=== PATIENT | female | born 1955 | race Caucasian/White ===

== ENCOUNTER 2018-02-26 10:08 | Emergency (ER) | payer OTHER, MEDICARE ==
[2018-02-26 10:43] VITALS: BP 110/56
--- NOTE | 2018-02-26 10:56 | UC ---
Shortness of Breath HPI - HPI Summary HPI Summary: 4 days ago patient bent over to shredder picker something off the floor had a sudden onset of lower right rib pain. Patient has felt intermittently short of breath patient has had pain in the rib that is radiated up to the back of her scapula. - History of Current Complaint Chief Complaint: UCGeneralIllness Stated Complaint: RIGHT SIDE RIB PAIN Time Seen by Provider: 02/26/18 10:21 Hx Obtained From: Patient - S ?: No Onset/Duration: Sudden Onset, Lasting Days - 4, Still Present Timing: Constant Current Severity: Moderate Dyspnea At: Rest - at her baseline Aggrevating Factors: Nothing Alleviating Factors: Nothing Associated Signs & Symptoms: Positive: Chest Pain w/Cough - Allergy/Home Medications Allergies/Adverse Reactions: Allergies Allergy/AdvReac Type Severity Reaction Status Date / Time spironolactone Allergy Nausea And Verified 02/26/18 10:24 Vomiting daytro 500 Allergy Swelling Uncoded 02/26/18 10:23 Of Face,Lips,& Throat Home Medications: Home Medications Azelastine 0.15% NASAL(NF) [Astepro 0.15% NASAL (NF)] 1 spray NASAL BID [History Confirmed 02/26/18] Calcium Carbonate/Vitamin D3 [Calcium 600 + Vit D Tablet] 1 tab PO DAILY [History Confirmed 02/26/18] Diltiazem CD CAP* [Cardizem CD CAP*] 480 mg PO DAILY 02/26/18 [History Confirmed 02/26/18] Ferrous Sulfate [Iron] 325 mg PO DAILY 02/26/18 [History Confirmed 02/26/18] Furosemide TAB* [Lasix TAB*] 60 mg PO BID 02/26/18 [History Confirmed 02/26/18] Hydroxychloroquine TAB* [Plaquenil TAB*] 200 mg PO BID 02/26/18 [History Confirmed 02/26/18] Ibandronate TAB(NF) [Boniva(NF)] 150 mg PO MONTHLY 02/26/18 [History Confirmed 02/26/18] Omeprazole CAP* [Prilosec CAP* 20 MG] 20 mg PO BID 02/26/18 [History Confirmed 02/26/18] Potassium Chlor TAB* [Potassium Chlor TAB 20 MEQ*] 20 meq PO DAILY 02/26/18 [ History Confirmed 02/26/18] Sildenafil (PULMONARY)(NF) [Revatio (NF)] 20 mg PO TID 02/26/18 [History Confirmed 02/26/18] Sulfamethox/Trimethoprim DS* [Bactrim DS 800/160 TAB*] 1 tab PO EVERY OTHER DAY 02/26/18 [History Confirmed 02/26/18] Treprostinil/Neb Accessories [Tyvaso Inhalation Refill Kit] 1.74 mg IH QID 02/26 [History Confirmed 02/26/18] Voriconazole TAB (NF) 400 mg PO DAILY 02/26/18 [History Confirmed 02/26/18] Wheat Dextrin [Benefiber] 1 pow PO DAILY 02/26/18 [History Confirmed 02/26/18] azaTHIOprine TAB(*) [Imuran TAB(*)] 50 mg PO BID 02/26/18 [History Confirmed 01/09] celeCOXIB CAP* [Celebrex CAP*] 200 mg PO BID 02/26/18 [History Confirmed ] predniSONE TAB* [Deltasone 20 MG TAB*] 20 mg PO DAILY 02/26/18 [History Confirmed 02/26/18] tiZANidine TAB* [Zanaflex TAB*] 2 mg PO TID 02/26/18 [History Confirmed 02/26/18 ] traMADol TAB* [Ultram*] 25 mg PO Q6HR PRN 02/26/18 [History Confirmed 02/26/18] PMH/Surg Hx/FS Hx/Imm Hx Previously Healthy: No - pulmonary fibrosis, pulmonary hypertension, RA GI/ History: Gastroesophageal Reflux - Audra actually cardiac catheter yesterday A, Other Other GI/ History: hiatel hernia - Surgical History Surgical History: Yes Surgery Procedure, Year, and Place: hysterectomy. claudio cyst removal L wrist. R leg- 2 plates, 17 screws - Family History Known Family History: Positive: None - Social History Occupation: Disabled Lives: With Family Alcohol Use: None Substance Use Type: None Smoking Status (MU): Never Smoked Tobacco Review of Systems Constitutional: Negative Skin: Negative Eyes: Negative ENT: Negative Respiratory: Shortness Of Breath, Other - Right lower rib pain Cardiovascular: Negative Gastrointestinal: Negative Genitourinary: Negative Motor: Negative Neurovascular: Negative Musculoskeletal: Negative Neurological: Negative Psychological: Negative Is Patient Immunocompromised?: No All Other Systems Reviewed And Are Negative: Yes Physical Exam Triage Information Reviewed: Yes Appearance: Well-Nourished, Ill-Appearing - chronic, Pain Distress - mild Vital Signs: Initial Vital Signs Temp 98.7 F 02/26/18 10:20 Pulse 80 02/26/18 10:20 Resp 22 02/26/18 10:20 BP 110/56 02/26/18 10:20 Pulse Ox 98 02/26/18 10:20 Vital Signs Reviewed: Yes Eye Exam: Normal Eyes: Positive: Conjunctiva Clear ENT Exam: Normal ENT: Positive: Normal ENT inspection, Hearing grossly normal, Pharynx normal. Negative: Nasal congestion, Trismus, Muffled voice, Hoarse voice Dental Exam: Normal Neck exam: Normal Neck: Positive: Supple, Nontender Respiratory Exam: Normal Respiratory: Positive: Normal breath sounds, No respiratory distress, No accessory muscle use, Other: - right anterior lateral chest wall pain. Negative : Chest non-tender Cardiovascular Exam: Normal Cardiovascular: Positive: RRR, No Murmur, Pulses Normal, Brisk Capillary Refill - . Changes Abdominal Exam: Normal Abdomen Description: Positive: Nontender Musculoskeletal Exam: Normal Musculoskeletal: Positive: Strength Intact, ROM Intact, No Edema Neurological Exam: Normal Neurological: Positive: Alert, Muscle Tone Normal Psychological Exam: Normal Psychological: Positive: Normal Response To Family, Age Appropriate Behavior, Consolable Skin Exam: Normal Diagnostics - Radiology No standard instances Xray Interpretation: Positive (See Comments) Radiology Interpretation Completed By: Radiologist - Patient Name: IRVIN DON Medical Record#: [id number] Ordering Physician: Kimberli Tejada HEAD [employer]PER Acct.#: [id number] : 1955 Age: 62 Sex: F Location: [facility] Exam Date: 02/26/18 1117 ADM Status: REG ER Order Information: CHEST PA & LAT 2 VWS Accession Number: [id number] CPT : 37430 INDICATION: Evaluate for hiatal hernia COMPARISON: Rib series same date TECHNIQUE: PA and lateral dual-energy views were obtained. FINDINGS: Bones/Soft Tissues: There is osteopenia with kyphosis. There is underlying osteoarthritic change. Cardiomediastinal: The heart is normal in size. The central pulmonary arteries are prominent consistent with pulmonary arterial hypertension. Lungs: There is a diffuse reticulonodular appearance of the lung callejas with coarsening of interstitium compatible with interstitial fibrosis. Given these diffuse abnormalities, superimposed acute process would be difficult to exclude. Pleura : No significant effusions. Other: Retrocardiac air-fluid level. Lateral views suggest that this is related to a hiatal hernia. IMPRESSION: PULMONARY INTERSTITIAL FIBROSIS. HIATAL HERNIA. <Electronically signed by Dieter Ervin MD in [place]> 01/09 1152 Dictated By: Dieter Ervin MD Dictated Date/Time: 02/26/18 1152 Transcribed Date/Time: 02/26/18 1147 Copy to: CC:Kimberli Tejada NP; Mihir Gaspar MD; Mathew Ayon MD Imaging - [place] [address] [address] ph [phone] ph [phone]) ph ([phone]) 1 of 1 Patient Name: IRVIN DON Medical Record#: [id number] Ordering Physician: Kimberli Tejada NP Acct.#: [id number] : 1955 Age: 62 Sex: F Location: [facility] Exam Date: 02/26/18 1046 ADM Status: REG ER Order Information: RIBS RT UNI W/PA CH MIN 3 VWS Accession Number: [id number] CPT: 68971 INDICATION: Right rib pain history of pulmonary fibrosis. COMPARISON: None TECHNIQUE: Multiple views of the ribs were obtained. FINDINGS: Bones: There is no evidence of acute rib fracture. LUNGS: There is diffuse interstitial lung disease persistent with pulmonary interstitial fibrosis. Correlation with any prior radiographs and clinical history of occupational exposure is recommended. Pleural spaces: There is no evidence of hemothorax. Other: There is an apparent air-fluid level in the left chest. This could be related to a hiatal hernia but may also represent a primary lung process. Initially a lateral radiograph is recommended which may help determine if this is GI are pulmonary parenchymal origin. Alternatively, CT imaging could be considered. IMPRESSION: NO DEFINITIVE RIB FRACTURE. DIFFUSELY ABNORMAL CHEST X-RAY WITH FINDINGS OF PULMONARY FIBROSIS. INDETERMINATE AIR-FLUID LEVEL LEFT HEMITHORAX. A LATERAL VIEW AND/OR CT IMAGING OF THE CHEST IS SUGGESTED. <Electronically signed by Dieter Ervin MD in [place]> 02/26/18 1119 Dictated By: Dieter Ervin MD Dictated Date/Time: 01/09 1119 Transcribed Date/Time: 02/26/18 1110 Copy to: CC:Kimberli Tejada NP; Mihir Gaspar MD; Mathew Ayon MD Imaging - [facility] Imaging - [facility] [address] [place] [address] ph ) ph [phone]) ph ([phone]) 1 of 1 Shortness of Breath Dx - Course Course Of Treatment: X-rays reviewed with patient. Patient understands that we may be missing a rib fracture due to underlying pulmonary fibrosis. Patient advised only way to get definitive diagnosis is to go to emergency department for CT scan patient does not want to do that at this time. Reviewed pain medicine options with patient reviewed common side effects of pain medications as well patient agreed to continue with artery prescribed Ultram add in Tylenol when necessary and will use Lidoderm patches topically and heat to help relieve the discomfort from the muscle strain. Patient and both verbalized understanding of need to go to emergency department should symptoms worsen or fail to resolve - Differential Dx/Diagnosis Provider Diagnoses: Chest Wall pain, hiatel hernia Discharge - Sign-Out/Discharge Documenting (check all that apply): Discharge/Admit/Transfer - Discharge Plan Condition: Stable Disposition: HOME Prescriptions: Lidocaine PATCH 5%* [Lidoderm 5% Patch*] 1 patch TRANSDERM DAILY #15 patch Patient Education Materials: Rib Contusion (ED) Referrals: Mathew Ayon MD [Primary Care Provider] - 2 Days - Billing Disposition and Condition Condition: STABLE Disposition: Home
--- NOTE | 2018-02-26 11:23 | RAD ---
INDICATION: Right rib pain history of pulmonary fibrosis. COMPARISON: None TECHNIQUE: Multiple views of the ribs were obtained. FINDINGS: Bones: There is no evidence of acute rib fracture. LUNGS: There is diffuse interstitial lung disease persistent with pulmonary interstitial fibrosis. Correlation with any prior radiographs and clinical history of occupational exposure is recommended. Pleural spaces: There is no evidence of hemothorax. Other: There is an apparent air-fluid level in the left chest. This could be related to a hiatal hernia but may also represent a primary lung process. Initially a lateral radiograph is recommended which may help determine if this is GI are pulmonary parenchymal origin. Alternatively, CT imaging could be considered. IMPRESSION: NO DEFINITIVE RIB FRACTURE. DIFFUSELY ABNORMAL CHEST X-RAY WITH FINDINGS OF PULMONARY FIBROSIS. INDETERMINATE AIR-FLUID LEVEL LEFT HEMITHORAX. A LATERAL VIEW AND/OR CT IMAGING OF THE CHEST IS SUGGESTED.
--- NOTE | 2018-02-26 11:55 | RAD ---
INDICATION: Evaluate for hiatal hernia COMPARISON: Rib series same date TECHNIQUE: PA and lateral dual-energy views were obtained. FINDINGS: Bones/Soft Tissues: There is osteopenia with kyphosis. There is underlying osteoarthritic change. Cardiomediastinal: The heart is normal in size. The central pulmonary arteries are prominent consistent with pulmonary arterial hypertension. Lungs: There is a diffuse reticulonodular appearance of the lung callejas with coarsening of interstitium compatible with interstitial fibrosis. Given these diffuse abnormalities, superimposed acute process would be difficult to exclude. Pleura: No significant effusions. Other: Retrocardiac air-fluid level. Lateral views suggest that this is related to a hiatal hernia. IMPRESSION: PULMONARY INTERSTITIAL FIBROSIS. HIATAL HERNIA.
== END 2018-02-26 12:19 | disposition home or self-care (01) ==
LOC: UCCORT 10:08
DX: R07.89 Other chest pain (principal); K44.9 Diaphragmatic hernia without obstruction or gangrene; Z98.890 Other specified postprocedural states; Z88.8 Allergy status to other drugs, medicaments and biological substances; K21.9 Gastro-esophageal reflux disease without esophagitis; I27.20 Pulmonary hypertension, unspecified; J84.10 Pulmonary fibrosis, unspecified
CPT/HCPCS: 71046; 99202; G0463